=== PATIENT | female | born 1950 | race Caucasian/White ===

== ENCOUNTER → 2016-09-12 | Outpatient (CLI) | payer MEDICARE, OTHER ==
--- NOTE | 2016-09-12 12:09 | REPMRS ---
Patient History The patient states she had a clinical breast exam in 09/08 Patient is postmenopausal, has history of skin cancer at age 59, and had first child at age 34. Family history of unknown cancer in maternal grandfather at age 60 and colorectal cancer in maternal cousin at age 55. Benign excisional biopsy of both breasts. Took hormonal contraceptives for 1 year. Digital Woman Screen Mammo: September 12, 2016 - Exam #: [id number] Bilateral CC and MLO view(s) were taken. Technologist: Kathrin Keys, Technologist Prior study comparison: July 19, 2015, digital woman screen mammo performed at [facility]. June 23, 2014, bilateral bilat screen digital mammo, performed at [facility] ([facility]). FINDINGS: The breast tissue is extremely dense which could obscure a lesion on mammography. There is no evidence of cancer on this mammogram. Large coarse benign appearing calcifications are present. No significant changes when compared with prior studies. ASSESSMENT: BI-RADS/ACR category 2 mammogram. Benign finding(s). Recommendation Routine screening mammogram of both breasts in 1 year (for women over age 40). This mammogram was interpreted with the aid of an FDA-approved computer-aided dectection system. Electronically Signed By: Ben Adorno MD 09/12/16 [id number]
== END ==
LOC: M WHC 10:25
PROVIDERS: ATTEND Nurse Practitioner Family
DX: Z12.31 Encounter for screening mammogram for malignant neoplasm of breast (principal); Z78.0 Asymptomatic menopausal state; Z12.11 Encounter for screening for malignant neoplasm of colon; Z92.89 Personal history of other medical treatment
CPT/HCPCS: 82270; G0101; G0123; G0202

== ENCOUNTER → 2017-03-26 | Outpatient (REF) | payer MEDICARE, OTHER | LOC: M LAB REF 13:16 | PROVIDERS: ATTEND Family Medicine | DX: Z01.89 Encounter for other specified special examinations (principal) ==

== ENCOUNTER → 2018-02-11 | Outpatient (REF) | payer MEDICARE, OTHER | LOC: M SFHCWAGY 11:59 | DX: Z12.4 Encounter for screening for malignant neoplasm of cervix (principal); N95.2 Postmenopausal atrophic vaginitis | CPT/HCPCS: G0123 ==

== ENCOUNTER → 2018-02-11 | Outpatient (CLI) | payer MEDICARE, OTHER | LOC: M WHC 11:36 | DX: Z12.31 Encounter for screening mammogram for malignant neoplasm of breast (principal); Z92.0 Personal history of contraception; Z92.89 Personal history of other medical treatment | CPT/HCPCS: 77067 ==

== ENCOUNTER → 2018-12-17 | Outpatient (REF) | payer MEDICARE, OTHER | LOC: M LAB REF 12:06 | PROVIDERS: ATTEND Physician Assistant Medical | DX: S81.801A Unspecified open wound, right lower leg, initial encounter (principal); W18.30XA Fall on same level, unspecified, initial encounter; Y92.009 Unspecified place in unspecified non-institutional (private) residence as the place of occurrence of the external cause ==

== ENCOUNTER → 2019-02-13 | Outpatient (CLI) | payer MEDICARE, OTHER ==
--- NOTE | 2019-02-13 12:39 | REPMRS ---
Patient History The patient states she had a clinical breast exam in 01/2019. Patient is postmenopausal, has history of basal cancer at age 59, and had first child at age 34. No known family history of cancer. Benign excisional biopsy of both breasts. Took hormonal contraceptives for 1 year. Digital Woman Screen Mammo: February 13, 2019 - Exam #: [id number] Bilateral CC and MLO view(s) were taken. Technologist: Teagan Mcdonald, Technologist Prior study comparison: February 11, 2018, bilateral digital woman screen mammo performed at [facility]. September 12, 2016, digital woman screen mammo performed at [facility]. July 19, 2015, digital woman screen mammo performed at [facility]. FINDINGS: The breast tissue is extremely dense which could obscure a lesion on mammography. There are disbursed stable microcalcifications bilaterally. There is an extremely dense symmetrical pattern of residual fibroglandular tissue. There has been no change in the appearance of the mammogram from the previous studies. There is no interval development of dominant mass, archetectural distortion, or grouped microcalcifications suggestive of malignancy. 3-D tomosynthesis shows no additional findings. Assessment: BI-RADS/ACR category 2 mammogram. Benign Findings. Recommendation Routine screening mammogram of both breasts in 1 year (for women over age 40). This patient's Lifetime Breast Cancer RIsk is estimated at 8.0 %. This mammogram was interpreted with the aid of an FDA-approved computer-aided dectection system. Electronically Signed By: Tobias Goodman MD 02/13/19 [id number]
== END ==
LOC: M WHC 11:26
PROVIDERS: ATTEND Nurse Practitioner Family
DX: Z12.31 Encounter for screening mammogram for malignant neoplasm of breast (principal); Z78.0 Asymptomatic menopausal state; Z85.89 Personal history of malignant neoplasm of other organs and systems; Z86.018 Personal history of other benign neoplasm; Z92.0 Personal history of contraception; Z91.89 Other specified personal risk factors, not elsewhere classified
CPT/HCPCS: 77063; 77067; G0101; G0123

== ENCOUNTER → 2019-02-13 | Outpatient (REF) | payer MEDICARE, OTHER | LOC: M SFHCWAGY 12:42 | PROVIDERS: ATTEND Nurse Practitioner Family | DX: Z91.89 Other specified personal risk factors, not elsewhere classified (principal); R87.615 Unsatisfactory cytologic smear of cervix; N95.8 Other specified menopausal and perimenopausal disorders ==

== ENCOUNTER → 2019-05-05 | Outpatient (REF) | payer MEDICARE, OTHER | LOC: M SFHCWAGY 15:16 | PROVIDERS: ATTEND Nurse Practitioner Family | DX: R87.615 Unsatisfactory cytologic smear of cervix (principal); N95.2 Postmenopausal atrophic vaginitis | CPT/HCPCS: G0123; G0463 ==

== ENCOUNTER → 2019-06-21 | Outpatient (REF) | payer MEDICARE, OTHER | LOC: M LAB REF 17:29 | PROVIDERS: ATTEND Physician Assistant Medical | DX: N39.0 Urinary tract infection, site not specified (principal) ==

== ENCOUNTER → 2020-02-04 | Outpatient (CLI) | payer MEDICARE, OTHER ==
--- NOTE | 2020-03-05 13:37 | SLEEPCENT ---
DATE: 02/04/2020 ORDERED BY: Dr. Sierra Tucker Nocturnal polysomnography was performed for evaluation of sleep physiology in this patient with a history of excessive somnolence, snoring, and nonrestorative sleep. There was 7 hours and 48 minutes of data reviewed. There was 325.5 minutes of sleep identified. Sleep latency was normal at 23.5 minutes. REM latency was normal at 91 minutes. Sleep architecture was fairly good with one period of wake in the middle portion of the study. There were three REM cycles noted. Overall sleep efficiency was 70.5%. The electrocardiogram showed a sinus rhythm with an average heart rate of 60 beats per minute. Rate ranged 54-82. EEG showed normal waveforms for wake and sleep. There were only 13 respiratory events identified of 10 seconds in duration or greater for a apnea-hypopnea index within normal limits. of 2.4. The events that were seen were more frequent in the supine posture. Arousals from respiratory events when arousals from snoring were included occurred 4.4 times per hour. There was some limb activity, but arousals from limb events were few, and oxygen saturations remained 90% throughout much of the study. There was one artifactual desaturation into the 80s seen. IMPRESSION: Normal nocturnal polysomnography with snoring. RECOMMENDATION: Given the occurrence of snoring and respiratory events in the supine posture sleep position, retraining for avoidance of the supine posture may be helpful, as may interventions to optimize upper airway tone and reduce snoring. MTDD
== END ==
LOC: M SLEEP 20:00
PROVIDERS: ATTEND Nurse Practitioner Family
DX: R06.83 Snoring (principal); R40.0 Somnolence

== ENCOUNTER → 2020-02-17 | Outpatient (CLI) | payer MEDICARE, OTHER ==
--- NOTE | 2020-02-17 12:29 | REPMRS ---
Patient History The patient states she had a clinical breast exam in January 2020.No known family history of cancer. Benign excisional biopsy of both breasts. Took hormonal contraceptives for 1 year. Digital Woman Screen Mammo: February 17, 2020 - Exam #: [id number] Bilateral CC and MLO view(s) were taken. Technologist: Mariposa Rey, Technologist Prior study comparison: February 13, 2019, bilateral digital woman screen mammo performed at [facility]. February 11, 2018, bilateral digital woman screen mammo performed at [facility]. September 12, 2016, digital woman screen mammo performed at [facility]. FINDINGS: The breast tissue is heterogeneously dense. This may lower the sensitivity of mammography. The Volpara volumetric breast density category is: C. There is stable post excisional scarring again noted in the right breast. There is a moderate amount of heterogeneously dense fibroglandular tissue which is fairly symmetric. There is no interval development of dominant mass, architectural distortion, or grouped microcalcification typical of malignancy. There has been no change in the appearance of the mammogram from the prior studies. 3-D tomosynthesis shows no additional findings. Assessment: BI-RADS/ACR category 2 mammogram. Benign Findings. Recommendation Routine screening mammogram of both breasts in 1 year (for women over age 40). This patient's Lifetime Breast Cancer RIsk is estimated at 7.6 %. This mammogram was interpreted with the aid of an FDA-approved computer-aided dectection system. Electronically Signed By: Tobias Goodman MD 02/17/20 [id number]
== END ==
LOC: M WHC 11:37
PROVIDERS: ATTEND Nurse Practitioner Family
DX: Z12.31 Encounter for screening mammogram for malignant neoplasm of breast (principal); Z86.018 Personal history of other benign neoplasm; Z92.0 Personal history of contraception

== ENCOUNTER → 2020-09-27 | Outpatient (CLI) | payer MEDICARE, OTHER ==
--- NOTE | 2020-09-28 08:08 | REP ---
INDICATION: HEADACHE. COMPARISON: None. TECHNIQUE: Axial CT images with multiplanar reformations. FINDINGS: No acute bleed or acute large vessel territorial infarct. Ventricles, cisterns and sulci are within normal limits. No mass effect or midline shift. No abnormal fluid collections. There are few scattered ill-defined hypodensities consistent with sequelae of chronic microvascular ischemic disease. Paranasal sinuses and mastoid air cells appear clear. IMPRESSION: No acute findings. Normal for age examination. <Electronically signed by Andi Howell > 09/28/20 [id number]
--- NOTE | 2020-09-28 08:11 | REP ---
INDICATION: HEADACHE. COMPARISON: None. TECHNIQUE: Axial CT images with multiplanar reformations. FINDINGS: Mucosal thickening is seen in a few scattered ethmoid air cells, paranasal sinuses are otherwise clear. No fluid levels. Mastoid air cells are clear. Dental hardware somewhat limits evaluation at the levels of the dentition. IMPRESSION: No acute findings. No imaging findings of sinusitis. <Electronically signed by Andi Howell > 09/28/20 0808
== END ==
LOC: M RAD 17:59
PROVIDERS: ATTEND Family Medicine
DX: R51.9 Headache, unspecified (principal)

== ENCOUNTER → 2021-03-21 | Outpatient (CLI) | payer MEDICARE, OTHER ==
--- NOTE | 2021-03-21 15:21 | REPMRS ---
Patient History The patient states she has not had a clinical breast exam in over a year. No known family history of cancer. Benign excisional biopsy of both breasts. Took hormonal contraceptives for 1 year. Patient states no breast complaints today. Patient has signed MRS History Sheet. Digital Woman Screen Mammo: March 21, 2021 - Exam #: [id number] Bilateral CC and MLO view(s) were taken. Technologist: Kathrin Keys, Technologist Prior study comparison: February 17, 2020, bilateral digital woman screen mammo performed at [facility]. February 13, 2019, bilateral digital woman screen mammo performed at [facility]. FINDINGS: The breast tissue is extremely dense which could obscure a lesion on mammography. Screening. Digital screening (2D) mammography was performed bilaterally in the CC and MLO projections. Additionally, breast tomosynthesis (3D mammography) was performed bilaterally in the CC and MLO projections. Todays exam was compared to the prior exam/exams. By history, the patient has no complaints of a palpable breast abnormality or other significant breast complaints. The breasts are unchanged in size and shape.Once again, dense heterogenous fibroglandular elements are seen bilaterally in a stable appearing pattern but to such a degree that the sensitivity of the mammogram in detecting cancer is decreased.There is stable post-procedural internal architectural distortion in the right breast.. There are no quin-soft tissue densities or spiculated masses. There is no new internal architectural distortion.Calcifications are again seen in the breast/breasts. Some of these are in groups but no one group appears more suspicious than any other. There are no suspicious quin-calcific clusters. Skin thickening or nipple retraction is not present. IMPRESSION: BI-RADS Category 2- Benign Findings. There is no evidence of malignant alteration of the breasts. Followup examination recommended in one year. The Volpara volumetric breast density category is D, the breasts are extremely dense which lowers the sensitivity of mammography. This mammogram was read with the assistance of [employer]stonClearSlide,an FDA approved computer aided detection system for mammography. The lifetime Tyrer-Cuzick score is 7.2 % Due to the density of the breasts or Tyrer Cuzick score of 20% or greater, MRI/whole breast screening ultrasound is warranted. Negative x-ray reports should not delay surgical consultation if a dominant or clinically suspicious mass is present. Not all breast cancers can be identified by mammography. Therefore, we recommend that you continue to perform regular breast self-examination and physical examination and then promptly contact your physician of any concerns or changes. Adenosis and dense breasts may obscure an underlying neoplasm. Assessment: BI-RADS/ACR category 2 mammogram. Benign Findings. Recommendation Routine screening mammogram of both breasts in 1 year. Electronically Signed By: Silvino Cali DO 03/21/21 1408
== END ==
LOC: M WHC 14:22
PROVIDERS: ATTEND Family Medicine
DX: Z12.31 Encounter for screening mammogram for malignant neoplasm of breast (principal)

== ENCOUNTER → 2021-04-18 | Outpatient (REF) | payer MEDICARE, OTHER | LOC: M LAB REF 16:43 | PROVIDERS: ATTEND Internal Medicine | DX: M25.539 Pain in unspecified wrist (principal) ==

== ENCOUNTER → 2021-05-09 | Outpatient (REF) | payer MEDICARE, OTHER ==
[2021-05-09 17:54] LABS: CK-MB VALUE MASS 5.1 NG/ML (<3.6); MB/CK RELATIVE INDEX 4.02 (< OR =4)
== END ==
LOC: M LABDRWAD 16:02
PROVIDERS: ATTEND Nurse Practitioner Family
DX: Z08 Encounter for follow-up examination after completed treatment for malignant neoplasm (principal); Z85.828 Personal history of other malignant neoplasm of skin; D22.39 Melanocytic nevi of other parts of face; D22.4 Melanocytic nevi of scalp and neck; D22.71 Melanocytic nevi of right lower limb, including hip; D22.72 Melanocytic nevi of left lower limb, including hip; D22.5 Melanocytic nevi of trunk; D22.62 Melanocytic nevi of left upper limb, including shoulder; D22.61 Melanocytic nevi of right upper limb, including shoulder; L81.4 Other melanin hyperpigmentation; X32.XXXA Exposure to sunlight, initial encounter; D18.01 Hemangioma of skin and subcutaneous tissue; L82.1 Other seborrheic keratosis; D23.71 Other benign neoplasm of skin of right lower limb, including hip; L81.5 Leukoderma, not elsewhere classified; I83.93 Asymptomatic varicose veins of bilateral lower extremities; L81.8 Other specified disorders of pigmentation; Z71.89 Other specified counseling; R21 Rash and other nonspecific skin eruption; L57.0 Actinic keratosis

== ENCOUNTER → 2021-06-02 | Outpatient (REF) | payer MEDICARE, OTHER ==
[2021-06-03 13:07] LABS: ANTI DOUBLE STRAND-DNA AB <1 IU/mL (0-9); ANTINUCLEAR ANTIBODIES DIRECT Positive (Negative); RNP ANTIBODIES 0.5 AI (0.0-0.9); SJOGREN'S ANTI SS-A <0.2 AI (0.0-0.9); SJOGREN'S ANTI SS-B <0.2 AI (0.0-0.9); SMITH ANTIBODIES <0.2 AI (0.0-0.9)
== END ==
LOC: M LAB REF 12:18
PROVIDERS: ATTEND Internal Medicine
DX: R76.8 Other specified abnormal immunological findings in serum (principal)

== ENCOUNTER → 2021-07-18 | Outpatient (REF) | payer MEDICARE, OTHER ==
[2021-07-18 13:24] LABS: LDH LACTATE DEHYDROGENASE 227 U/L (84-246); TOTAL PROTEIN 7.6 GM/DL (6.4-8.2)
[2021-07-18 14:02] LABS: CA 125 8.7 U/ML (<30.2)
[2021-07-18 14:03] LABS: CA19-9 TUMOR MARKER,CARBOHYDRA 3.1 U/ML (<35.0)
[2021-07-20 12:33] LABS: ALBUMIN 4.43 GM/DL (3.29-5.55); ALBUMIN % 58.3 % (55.8-66.1); ALPHA-1-GLOBULIN % 4.1 % (2.9-4.9); ALPHA-1-GLOBULINS 0.31 GM/DL (0.17-0.41); ALPHA-2-GLOBULINS 0.79 GM/DL (0.42-0.99); ALPHA-2-GLOBULINS % 10.4 % (7.1-11.8); BETA-1-GLOBULINS 0.41 GM/DL (0.28-0.60); BETA-1-GLOBULINS % 5.4 % (4.7-7.2); BETA-2-GLOBULINS 0.34 GM/DL (0.19-0.55); BETA-2-GLOBULINS % 4.5 % (3.2-6.5); GAMMA GLOBULIN % 17.3 % (11.1-18.8); GAMMA GLOBULINS 1.31 GM/DL (0.65-1.58)
== END ==
LOC: M LAB REF 12:05
PROVIDERS: ATTEND Internal Medicine
DX: N39.0 Urinary tract infection, site not specified (principal)

== ENCOUNTER → 2021-08-05 | Outpatient (CLI) | payer MEDICARE, OTHER | LOC: M WHC 14:01 | PROVIDERS: ATTEND Internal Medicine | DX: M85.851 Other specified disorders of bone density and structure, right thigh (principal); M85.852 Other specified disorders of bone density and structure, left thigh ==

== ENCOUNTER → 2021-08-17 | Outpatient (CLI) | payer MEDICARE, OTHER | LOC: M PLAIMG 13:27 | PROVIDERS: ATTEND Internal Medicine | DX: M33.13 Other dermatomyositis without myopathy (principal) ==

== ENCOUNTER → 2021-09-15 | Outpatient (REF) | payer MEDICARE, OTHER | LOC: M LAB REF 12:08 | PROVIDERS: ATTEND Family Medicine | DX: N39.0 Urinary tract infection, site not specified (principal) ==

== ENCOUNTER → 2021-11-04 | Outpatient (REF) | payer MEDICARE, OTHER | LOC: M PLALAB 09:44 | PROVIDERS: ATTEND Advanced Practice Midwife | DX: M35.9 Systemic involvement of connective tissue, unspecified (principal); Z12.4 Encounter for screening for malignant neoplasm of cervix ==

== ENCOUNTER → 2021-11-04 | Outpatient (REF) | payer MEDICARE, OTHER | LOC: M SFHCWAGY 11-03 09:53 | PROVIDERS: ATTEND Advanced Practice Midwife | DX: M35.9 Systemic involvement of connective tissue, unspecified (principal); Z12.4 Encounter for screening for malignant neoplasm of cervix | CPT/HCPCS: 87624; G0123; G0463 ==

== ENCOUNTER → 2021-12-02 | Outpatient (CLI) | payer MEDICARE, OTHER | LOC: M CARPUL 15:04 | PROVIDERS: ATTEND Internal Medicine Rheumatology | DX: R06.00 Dyspnea, unspecified (principal) ==

== ENCOUNTER → 2022-07-03 | Outpatient (REF) | payer MEDICARE, OTHER | LOC: M SFHCWAGY 13:13 | PROVIDERS: ATTEND Obstetrics & Gynecology | DX: Z12.4 Encounter for screening for malignant neoplasm of cervix (principal) | CPT/HCPCS: 87624; G0123 ==

== ENCOUNTER → 2022-07-03 | Outpatient (CLI) | payer MEDICARE, OTHER | LOC: M WHC 07:25 | PROVIDERS: ATTEND Obstetrics & Gynecology | DX: Z12.31 Encounter for screening mammogram for malignant neoplasm of breast (principal) ==

== ENCOUNTER → 2022-07-20 | Outpatient (CLI) | payer MEDICARE, OTHER | LOC: M PLAIMG 11:13 | PROVIDERS: ATTEND Nurse Practitioner Family | DX: R91.8 Other nonspecific abnormal finding of lung field (principal); J44.9 Chronic obstructive pulmonary disease, unspecified ==

== ENCOUNTER 2023-02-08 06:32 | Day surgery (SDC) | payer MEDICARE, OTHER ==
[~2023-02-08] VITALS: Ht 170.2 cm; Wt 58.9 kg
[~2023-02-08 06:32] MED LIST: ALEV220T22 PO; AMIT10TA7 PO; ASPI81TA26 PO; ATOR1TAB19 PO; CALCCAP4 PO; CVS500CA5 PO; ESSE250T PO; IBUP200C25 PO; IRON240T PO; MYRB50TA PO; NS 1,000 ML IV ONE; PROBCAP14 PO; SYNT50TA PO; VITA100093 PO; VITMTA PO
[2023-02-08] MEDS ORDERED: SIMETHICONE 40MG/0.6ML DROPS 30ML As Ordered ONE (07:13)
[2023-02-08] MEDS ORDERED: propofoL 200 MG/20 ML VIAL As Ordered ONE ×2 (07:14→08:00)
[2023-02-08] MEDS ORDERED: LIDOCAINE 2% MDV 20ML VIAL As Ordered ONE (07:26)
[2023-02-08 08:09] VITALS: TEMP 98.1
[2023-02-08 08:25] VITALS: BP 116/55; O2SAT 100
== END 2023-02-08 08:25 | disposition home or self-care (01) ==
LOC: M OPP 06:32
PROVIDERS: ATTEND Surgery
DX: Z12.11 Encounter for screening for malignant neoplasm of colon (principal); D12.6 Benign neoplasm of colon, unspecified; Z79.02 Long term (current) use of antithrombotics/antiplatelets; Z79.1 Long term (current) use of non-steroidal anti-inflammatories (NSAID); Z79.82 Long term (current) use of aspirin; Z79.890 Hormone replacement therapy; Z88.1 Allergy status to other antibiotic agents; Z88.6 Allergy status to analgesic agent; Z88.8 Allergy status to other drugs, medicaments and biological substances

== ENCOUNTER → 2023-07-09 | Outpatient (REF) | payer MEDICARE, OTHER ==
[~2023-07-09] MED LIST changes: -NS 1,000 ML IV ONE
== END ==
LOC: M SFHCWAGY 12:20
PROVIDERS: ATTEND Obstetrics & Gynecology
DX: Z12.4 Encounter for screening for malignant neoplasm of cervix (principal); N95.2 Postmenopausal atrophic vaginitis
CPT/HCPCS: 87624; G0123

== ENCOUNTER → 2023-07-09 | Outpatient (CLI) | payer MEDICARE, OTHER | LOC: M WHC 10:24 | PROVIDERS: ATTEND Obstetrics & Gynecology | DX: Z12.31 Encounter for screening mammogram for malignant neoplasm of breast (principal) ==

== ENCOUNTER → 2023-07-13 | Outpatient (REF) | payer MEDICARE, OTHER ==
[2023-07-13 18:49] LABS: BASO # 0.1 10^3/uL (0.0-0.2); EOS # 0.4 10^3/uL (0.0-0.5); EOS % 8.1 % (0.0-3.0); HEMATOCRIT 37.7 % (36.0-47.0); HEMOGLOBIN 12.3 g/dl (12.0-15.5); LYMPH # 1.6 10^3/uL (1.5-5.0); LYMPH % 36.4 % (24.0-44.0); MEAN CORPUSCULAR HEMOGLOBIN 32.1 pg (27.0-33.0); MEAN CORPUSCULAR HGB CONC 32.6 g/dl (32.0-36.5); MEAN CORPUSCULAR VOLUME 98.4 fl (80.0-96.0); MONO # 0.5 10^3/uL (0.0-0.8); MONO % 11.2 % (2.0-8.0); NEUTROPHILS # 1.9 10^3/uL (1.5-8.5); NEUTROPHILS % 41.6 % (36.0-66.0); PLATELET COUNT, AUTOMATED 247 10^3/uL (150-450); RED BLOOD COUNT 3.83 10^6/uL (4.00-5.40); WHITE BLOOD COUNT 4.5 10^3/uL (4.0-10.0)
[2023-07-13 18:56] LABS: ALBUMIN 3.9 G/DL (3.2-5.2); ALKALINE PHOSPHATASE 59 U/L (46-116); ALT/SGPT 27 U/L (7.0-40); AST/SGOT 25 U/L (<34); BILIRUBIN,TOTAL 0.9 MG/DL (0.3-1.2); BLOOD UREA NITROGEN 15 MG/DL (9-23); CALCIUM LEVEL 8.9 MG/DL (8.3-10.6); CARBON DIOXIDE LEVEL 29 MMOL/L (20-31); CHLORIDE LEVEL 102 MMOL/L (98-107); CHOLESTEROL LEVEL 177 MG/DL (<200); CREATININE FOR GFR 0.78 MG/DL (0.55-1.30); GLOMERULAR FILTRATION RATE > 60.0 (>39); GLUCOSE, FASTING 82 MG/DL (74-106); HDL CHOLESTEROL 80.2 MG/DL (>40); LDL CHOLESTEROL 85.8 MG/DL (<100); NON-HDL-C 96.8 MG/DL; POTASSIUM SERUM 4.4 MMOL/L (3.5-5.1); SODIUM LEVEL 136 MMOL/L (136-145); TOTAL PROTEIN 7.2 G/DL (5.7-8.2); TRIGLYCERIDES LEVEL 55 MG/DL (<150)
[2023-07-13 18:57] LABS: THYROID STIMULATING HORMONE 2.069 uIU/ML (0.55-4.78)
== END ==
LOC: M LABWUC 17:50
PROVIDERS: ATTEND Family Medicine
DX: E78.5 Hyperlipidemia, unspecified (principal); E03.9 Hypothyroidism, unspecified

== ENCOUNTER → 2023-07-26 | Outpatient (CLI) | payer MEDICARE, OTHER | LOC: M RAD 07:28 | PROVIDERS: ATTEND Nurse Practitioner Family | DX: J84.10 Pulmonary fibrosis, unspecified (principal) ==

== ENCOUNTER → 2023-11-12 | Outpatient (REF) | payer MEDICARE, OTHER ==
[~2023-11-12] MED LIST changes: +CRAN500C11 PO; -CVS500CA5 PO
[2023-11-12 14:45] LABS: FERRITIN 51.6 NG/ML (7.3-270.7)
[2023-11-12 14:46] LABS: IRON (FE) 89 UG/DL (50-170); PERCENT SATURATION 25.4 % (13.2-45.0); TOTAL IRON BINDING CAPACITY 351 UG/DL (250-425)
[2023-11-12 14:47] LABS: FOLATE > 24.0 NG/ML (>5.4)
[2023-11-12 14:49] LABS: VITAMIN B12 LEVEL > 2000 PG/ML (211-911)
== END ==
LOC: M LAB REF 13:02
PROVIDERS: ATTEND Family Medicine
DX: D64.9 Anemia, unspecified (principal)

== ENCOUNTER → 2024-01-15 | Outpatient (REF) | payer MEDICARE, OTHER ==
[2024-01-15 13:41] LABS: HEMOGLOBIN 12.1 g/dl (12.0-15.5); MEAN CORPUSCULAR HEMOGLOBIN 32.4 pg (27.0-33.0); MEAN CORPUSCULAR HGB CONC 32.7 g/dl (32.0-36.5); MEAN CORPUSCULAR VOLUME 98.9 fl (80.0-96.0); PLATELET COUNT, AUTOMATED 253 10^3/uL (150-450); RED BLOOD COUNT 3.74 10^6/uL (4.00-5.40); WHITE BLOOD COUNT 6.8 10^3/uL (4.0-10.0)
[2024-01-15 14:12] LABS: ALKALINE PHOSPHATASE 65 U/L (46-116); ALT/SGPT 28 U/L (7.0-40); AST/SGOT 26 U/L (<34); BILIRUBIN,TOTAL 0.8 MG/DL (0.3-1.2); BLOOD UREA NITROGEN 15 MG/DL (9-23); CALCIUM LEVEL 9.2 MG/DL (8.3-10.6); CARBON DIOXIDE LEVEL 29 MMOL/L (20-31); CHLORIDE LEVEL 104 MMOL/L (98-107); CHOLESTEROL LEVEL 179 MG/DL (<200); CREATININE FOR GFR 0.85 MG/DL (0.55-1.30); GLOMERULAR FILTRATION RATE > 60.0 (>39); GLUCOSE, FASTING 79 MG/DL (74-106); HDL CHOLESTEROL 81.3 MG/DL (>40); LDL CHOLESTEROL 82.9 MG/DL (<100); NON-HDL-C 97.7 MG/DL; POTASSIUM SERUM 4.2 MMOL/L (3.5-5.1); SODIUM LEVEL 138 MMOL/L (136-145); TOTAL PROTEIN 7.2 G/DL (5.7-8.2); TRIGLYCERIDES LEVEL 74 MG/DL (<150)
== END ==
LOC: M LABDRWAD 13:02
PROVIDERS: ATTEND Family Medicine
DX: D64.9 Anemia, unspecified (principal); E78.5 Hyperlipidemia, unspecified; E03.9 Hypothyroidism, unspecified

== ENCOUNTER → 2024-07-09 | Outpatient (REF) | payer MEDICARE, OTHER ==
[~2024-07-09] MED LIST changes: -CRAN500C11 PO; +CVS500CA5 PO
[2024-07-09 14:03] LABS: HEMATOCRIT 36.9 % (36.0-47.0); MEAN CORPUSCULAR HEMOGLOBIN 31.9 pg (27.0-33.0); MEAN CORPUSCULAR HGB CONC 32.5 g/dl (32.0-36.5); MEAN CORPUSCULAR VOLUME 98.1 fl (80.0-96.0); PLATELET COUNT, AUTOMATED 279 10^3/uL (150-450); RED BLOOD COUNT 3.76 10^6/uL (4.00-5.40); WHITE BLOOD COUNT 7.1 10^3/uL (4.0-10.0)
[2024-07-09 14:06] LABS: THYROXINE (T4) 7.4 UG/DL (4.5-10.9)
[2024-07-09 15:17] LABS: ALBUMIN 3.9 G/DL (3.2-5.2); ALKALINE PHOSPHATASE 66 U/L (35-104); ALT/SGPT 26 U/L (7.0-40); AST/SGOT 25 U/L (<34); BLOOD UREA NITROGEN 16 MG/DL (9-23); CARBON DIOXIDE LEVEL 30 MMOL/L (20-31); CHLORIDE LEVEL 102 MMOL/L (98-107); CHOLESTEROL LEVEL 184 MG/DL (<200); CHOLESTEROL RISK RATIO 2.17 (<5); CREATININE FOR GFR 0.84 MG/DL (0.55-1.30); GLOMERULAR FILTRATION RATE > 60.0 (>39); GLUCOSE, FASTING 84 MG/DL (74-106); HDL CHOLESTEROL 84.6 MG/DL (>40); LDL CHOLESTEROL 83.4 MG/DL (<100); NON-HDL-C 99.4 MG/DL; SODIUM LEVEL 141 MMOL/L (136-145); TOTAL PROTEIN 7.1 G/DL (5.7-8.2); TRIGLYCERIDES LEVEL 80 MG/DL (<150)
== END ==
LOC: M LABDRWAD 12:52
PROVIDERS: ATTEND Family Medicine
DX: E78.5 Hyperlipidemia, unspecified (principal); E03.9 Hypothyroidism, unspecified; D64.9 Anemia, unspecified

== ENCOUNTER → 2024-07-14 | Outpatient (CLI) | payer MEDICARE, OTHER | LOC: M WHC 12:57 | PROVIDERS: ATTEND Family Medicine | DX: Z12.31 Encounter for screening mammogram for malignant neoplasm of breast (principal) ==

== ENCOUNTER → 2025-01-06 | Outpatient (REF) | payer MEDICARE, OTHER ==
[~2025-01-06] MED LIST changes: +AMIT10TA11 PO; -AMIT10TA7 PO; -ESSE250T PO; +MAGN250T17 PO
[2025-01-06 14:59] LABS: BASO # 0.1 10^3/uL (0.0-0.2); BASO % 1.6 % (0.0-1.0); EOS # 0.2 10^3/uL (0.0-0.5); EOS % 4.5 % (0.0-3.0); LYMPH # 2.1 10^3/uL (1.5-5.0); LYMPH % 40.5 % (24.0-44.0); MONO # 0.6 10^3/uL (0.0-0.8); MONO % 11.6 % (2.0-8.0); NEUTROPHILS # 2.2 10^3/uL (1.5-8.5); NEUTROPHILS % 41.6 % (36.0-66.0); PLATELET COUNT, AUTOMATED 231 10^3/uL (150-450)
[2025-01-06 15:19] LABS: ALT/SGPT 25.0 U/L (7.0-40); AST/SGOT 35.0 U/L (<34); CALCIUM LEVEL 8.7 MG/DL (8.3-10.6); CARBON DIOXIDE LEVEL 30.0 MMOL/L (20-31); CHLORIDE LEVEL 102.0 MMOL/L (98-107); CHOLESTEROL LEVEL 166.0 MG/DL (<200); CHOLESTEROL RISK RATIO 1.93 (<5); CREATININE FOR GFR 0.93 MG/DL (0.55-1.30); GLOMERULAR FILTRATION RATE 64.1 (>39); LDL CHOLESTEROL 69.6 MG/DL (<100); NON-HDL-C 80.4 MG/DL; POTASSIUM SERUM 4.4 MMOL/L (3.5-5.1); SODIUM LEVEL 141.0 MMOL/L (136-145); TRIGLYCERIDES LEVEL 54.0 MG/DL (<150)
[2025-01-06 15:21] LABS: FREE T4 1.15 NG/DL (0.89-1.76)
== END ==
LOC: M LABDRWAD 13:10
PROVIDERS: ATTEND Family Medicine
DX: E03.9 Hypothyroidism, unspecified (principal); D64.9 Anemia, unspecified; E78.5 Hyperlipidemia, unspecified

== ENCOUNTER → 2025-01-19 | Outpatient (REF) | payer MEDICARE, OTHER ==
[2025-01-19 16:49] LABS: HIV 1&2 SCREEN NEGATIVE (NEGATIVE)
[2025-01-19 16:56] LABS: HEPATITIS C VIRUS ABY INDEX 0.07 INDEX (<0.8)
[2025-01-19 16:59] LABS: VITAMIN B12 LEVEL > 2000 PG/ML (211-911)
== END ==
LOC: M LAB REF 14:22
PROVIDERS: ATTEND Family Medicine
DX: D64.9 Anemia, unspecified (principal); Z11.4 Encounter for screening for human immunodeficiency virus [HIV]

== ENCOUNTER → 2025-03-25 | Outpatient (CLI) | payer MEDICARE, OTHER | LOC: M RAD 10:04 | PROVIDERS: ATTEND Registered Nurse Emergency | DX: R30.0 Dysuria (principal) ==

== ENCOUNTER 2025-05-19 10:41 | Outpatient (RCR) | payer MEDICARE, OTHER | END 2025-05-24 | LOC: M PT 10:41 | PROVIDERS: ATTEND Urology | DX: N39.41 Urge incontinence (principal); R30.0 Dysuria; R10.20 Pelvic and perineal pain unspecified side ==

== ENCOUNTER 2025-06-23 08:54 | Outpatient (RCR) | payer MEDICARE, OTHER | END 2025-06-24 | LOC: M PT 08:54 | PROVIDERS: ATTEND Urology | DX: N39.41 Urge incontinence (principal); R30.0 Dysuria; R10.20 Pelvic and perineal pain unspecified side ==